=== PATIENT | male | born 1940 | race Caucasian/White ===

== ENCOUNTER 2016-10-26 15:45 | Inpatient (IN) | payer MEDICARE, OTHER ==
[~2016-10-26] VITALS: Ht 177.8 cm; Wt 92.9 kg
[~2016-10-26 15:45] MED LIST: AMLO-39 PO; ASPI-628 PO; ATOR40TA69 PO; DOXA4TAB3 PO; GLIP2.5T2 PO; LISI10TA2 PO; METF500T4 PO; METO5TAB78 PO; PANT40TA2 PO; POLY17PO6 PO; PREG75CA PO; TRAM50TA2 PO
[2016-10-26 15:50] VITALS: BP 154/75; PULSE 60; RESP 16
[2016-10-26 17:28] LABS: BASOPHILS % (AUTO) 0.2 % (0-3); EOSINOPHILS % (AUTO) 0.2 % (0-5); MONOCYTES % (AUTO) 10.8 % (4-12); Mean Corpuscular Hemoglobin 30.7 pg (27.0-35.0); Mean Corpuscular Volume 94.7 fL (81-100); NEUTROPHILS % (AUTO) 62.6 % (40-74); Platelet Count 140 bil/L (150-400)
--- NOTE | 2016-10-26 17:44 | DRSVH ---
PROCEDURE: X-RAY CHEST, TWO VIEWS ([id number]) INDICATIONS: 75 year-old male with cough and shortness of breath. TECHNIQUE: 2 views of the chest were acquired. COMPARISON: [facility], CT, CT KUB, 10/23/2015, 8:58. [facility], CR, XR SAMIR ST 2VW, 11/02/2015, 14:57. FINDINGS: Surgical changes and devices: Sternotomy and CABG. There is a cardiac pacemaker with 2 leads in expec yvonne position. Right shoulder arthroplasty. Lungs and pleura: No pleural effusions or pneumothorax. There is left basilar infiltrate or atelecta sis. Colonic interposition under the diaphragm. Mediastinum: Mediastinal contours are normal. Heart size is moderately increased. Bones and chest wall: No suspicious bony abnormalities. Soft tissues appear unremarkable. IMPRESSION: Cardiomegaly and left basilar infiltrate or atelectasis. Dictated by: Lakesha Sanz M.D. on 10/26/2016 at 17:40 Approved by: Lakesha Sanz M.D. on 10/26/2016 at 17:42
[2016-10-26 17:51] LABS: TROPONIN T 0.083 ug/L (0.0-0.011)
[2016-10-26 17:53] VITALS: BP_SYST 158; BP_SYST 168; BP_DIAS 64; BP_DIAS 96; PULSE 65; RESP 17; O2SAT 95
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
[2016-10-26] MEDS ORDERED: Furosemide 10 mg/mL 2 mL Inj IVPUSH ONE (19:35)
[2016-10-26] MEDS ORDERED: Furosemide 10 mg/mL 4 mL Inj IVPUSH ONE (19:45)
[2016-10-26 21:02] VITALS: BP 171/81; PULSE 60; RESP 20; O2SAT 100
[2016-10-26] MEDS ORDERED: Alum-Mag Hydrox-Simeth 30 mL Suspension PO PRN ×2 (21:10→22:00)
[2016-10-26] MEDS ORDERED: Ondansetron 2 mg/mL 2 mL Inj IVPUSH PRN ×2 (21:10→22:00)
--- NOTE | 2016-10-26 21:19 | NUR ---
MED REC Pts med rec updated from interview w/ pts caregiver, Tatyana, from [facility] ([phone]). Tatyana states pts told her that he "takes 3 medications". Those 3 medications updated in Med Rec, other medications discontinued, as per caregiver/pt, he only takes 3 medications. Addendum: 10/26/16 at 2140 by FABRICE MARTIN RN Admit RN will fax pts PCP for current list of medications.
[2016-10-26 21:51] LABS: COLOR,URINE STRAW (YELLOW)
[2016-10-26 21:52] LABS: APPEARANCE,URINE CLEAR (CLEAR,HAZY); OCCULT BLOOD,URINE SMALL (NEGATIVE); UROBILINOGEN,URINE NORMAL (NORMAL)
[2016-10-26] MEDS ORDERED: Senna-Docusate 8.6-50 mg Tablet PO PRN (22:00)
--- NOTE | 2016-10-26 22:06 | NUR ---
MED REC PCP office of Olivia Rodriguez faxed to request COMPLETE list of pt's medications.
--- NOTE | 2016-10-26 22:06 | NUR ---
Admission Pt admitted to 3027. Report of health history given to Lakeshia Kramer RN Pt oriented to call light/television. Pt is aware of plan of care following resident's visit at bedside. Care ongoing
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
[2016-10-26] MEDS ORDERED: Albuterol-Ipratropium 3 mL Inhalation Solution NEB PRN (22:45)
[2016-10-26 22:52] LABS: INR 0.95 ratio
[2016-10-26 23:46] LABS: Creatine Kinase 189 U/L (21-232); Magnesium 2.2 mg/dL (1.6-2.6)
[2016-10-27] VITALS (9 sets, daily range): BP systolic 108–180; BP diastolic 72–83; PULSE 54–80; RESP 16–20; O2SAT 93–97
[2016-10-27] MEDS: Sodium Chloride LOK Flush 10 mL Syringe IVFLUSH SCH ×3 (00:43→16:51)
[2016-10-27] MEDS: Heparin 5,000 Unit/mL Inj SUBQ SCH ×3 (00:43→16:50)
[2016-10-27] MEDS: guaiFENesin 600 mg ER12 Tablet PO SCH ×4 (00:43→20:30)
[2016-10-27] MEDS ORDERED: OXYC-474 PO (00:52)
--- NOTE | 2016-10-27 01:11 | NUR ---
HOME MEDICATION Pt requested pain medication. Pain medication not listed as home medication per report from pts caregiver. Pt stated, "that's because she didn't have it, I have it." Bottle of medication labeled oxycodone 5mg tablets found in pts closet. Two RNs counted white round pills, 75 pills counted. Bottle of medication put in medication bag, sealed and walked down to pharmacy.
[2016-10-27 07:50] LABS: BASOPHILS % (AUTO) 0.2 % (0-3); EOSINOPHILS % (AUTO) 0.8 % (0-5); MONOCYTES % (AUTO) 14.7 % (4-12); Mean Corpuscular Hemoglobin 30.6 pg (27.0-35.0); Mean Corpuscular Volume 93.5 fL (81-100); Platelet Count 152 bil/L (150-400)
[2016-10-27 07:52] LABS: Phosphorus 2.3 mg/dL (2.5-4.9)
[2016-10-27] MEDS ORDERED: Furosemide 10 mg/mL 4 mL Inj IVPUSH SCH (08:30)
[2016-10-27 08:50] LABS: TROPONIN T 0.084 ug/L (0.0-0.011)
[2016-10-27] MEDS ORDERED: METF500T4 PO (10:45)
--- NOTE | 2016-10-27 12:16 | NUR ---
SOB At approx 1210 pt reported SOB while sitting in WC at bedside. I put pt on 2L, then bumped up to 4L NC, pt was previously on RA. VS taken and were normal range, blood glucose 151, afebrile. Pt reports feeling slightly better, is now eating lunch. Continuing to monitor, notified.
--- NOTE | 2016-10-27 16:34 | NUR ---
Social Work: Initial Assessment Data: Pt is a 75 y/o male admitted for CHF, elevated trop. Pt's PCP is Dr Rodriguez, pt's insurance is Medicare with [employer] [place] supp. EMR reviewed. PATHOLOGY SPECIALIST met with pt at bedside, role explained. Pt states he lives alone in [place] in a single story home where he has HH and [facility]. Pt states he uses a wheelchair at baseline and drives, he states he has hx with HH and SNF. No LTC or VA benefits. Pt states he is not a caregiver. PATHOLOGY SPECIALIST will continue to follow for d/c planning needs. Plan: PATHOLOGY SPECIALIST will follow for d/c planning needs. MYRNA Garcia Addendum: 10/27/16 at 1636 by CONNIE GARRETT Amended: Links added.
[2016-10-27] MEDS: Benzocaine-Menthol Lozenge 2/Pkg PO PRN (16:50)
[2016-10-27] MEDS: Furosemide 10 mg/mL 4 mL Inj IVPUSH SCH (16:50)
--- NOTE | 2016-10-27 17:12 | DRSVH ---
[facility] [address] [place] [address] Echocardiogram Report Name: BONITA ABAD CStudy Ralph e: 10/27/2016 Height: 70 in Hospital [facility] Weight: 204 lb Gender: Male BSA: 2.1 m2 : 1940 Age: 75 yrs BP: 172/83 mmHg Reason For Study: HEART FAILURE Ordering Physician: [facility] Performed By: Chris Herrera Referring Physician: Dr. Douglas Rodriguez Interpretation Summary Left ventricular wall thickness is mild-moderately increased. Left ventricular systolic function is moderately reduced. Left ventricular ejection fraction is estimated to be 35%. Compared to the prior exam, left ventricular function is slightly decreased. Apical wall motion abnormality may reflect pacemaker activation. The right ventricle is normal size. There is a pacemaker lead in the right ventricle. Right ventricular systolic function is borderline reduced. The right ventricular systolic pressure is estimated at 28 mmHg assuming a right atrial pressure of 3 mm Hg. The left atrium is mildly dilated. Right atrial size is normal. There is no significant valvular heart disease. The aortic root is normal size. Procedure: A two-dimensional transthoracic echocardiogram with color flow and Doppler was performed. The study quality was technically adequate. Comparison is made with the echocardiogram of 11/10/15. The patient has a paced rhythm. Left Ventricle: The left ventricle is normal in size. Left ventricular wall thickness is mild-moderately increased. Left ventricular systolic function is moderately reduced. Left ventricular ejection fraction is estimated to be 35%. Compared to the prior exam, left ventricular function is slightly decreased. There is moderate global hypokinesis of the left ventricle. Apical wall motion abnormality may reflect pacemaker activation. Right Ventricle: The right ventricle is normal size. There is a pacemaker lead in the right ventricle. Right ventricular systolic function is borderline reduced. Atria: The left atrium is mildly dilated. Right atrial size is normal. The interatrial septum is intact with no evidence for an atrial septal defect. Mitral Valve: The mitral valve is normal in structure and function. There is trace mitral regurgitation. Aortic Valve: The aortic valve is normal in structure and function. The aortic valve is trileaflet. The aortic valve opens well. No aortic regurgitation is present. Tricuspid Valve: The tricuspid valve is normal in structure and function. There is trace tricuspid regurgitation. The right ventricular systolic pressure is estimated at 28 mmHg assuming a right atrial pressure of 3 mm Hg. Pulmonic Valve: The pulmonic valve is not well visualized. There is no significant valvular heart disease. Great Vessels: The aortic root is normal size. The dimensions of the ascending aorta are normal. The pulmonary artery is normal size. The IVC is of normal diameter and collapses greater than 50% with a sniff. This suggests a low right atrial pressure of 3 mm Hg. Pericardium/ Pleura There is no pericardial effusion. There is no pleural effusion. MMode/2D Measurements & Calculations LVIDd: 4.1 cm RA long axis: 5.2 cm LVOT diam LVIDs: 3.7 cm LA A2 area: 22.4 cm FS: 10.7 % LA A4 area: 25.6 cm RA area: 17.0 cm AoV Opening EPSS: 0.78 cm LA length (vol): 6.6 cm RA vol: 47.1 ml IVSd: 1.2 cm LA vol: 73.8 ml RA : 22.4 ml/m2 Ao root diam LVPWd: 1.3 cm LA vol index: 35.0 ml/m Aortic Jxn IVC diam: 1.5 cm asc Aorta Diam EDV(MOD-sp2) LV lund. diameter/BSA LV sys. diameter/BSA RVD1 (basal) (cm/m^2): 1.9 (cm/m^2): 1.7 : 3.6 cm RVD2 (mid) : 3.3 cm Doppler Measurements & Calculations Ao V2 max MV E max tank MV E/A: 0.46 TR max tank: 251.5 cm/sec : 98.1 cm/sec : 33.5 cm/sec Med Peak E' Tank TR max P.3 mmHg Ao max PG MV A max tank PA V2 max: 70.6 cm/sec : 3.8 mmHg : 73.6 cm/sec E/E' med: 18.5 PA mean P.84 mmHg Ao mean PG Pulm A Revs Dur PA Accel Time: 0.11 sec : 2.4 mmHg MV A dur: 0.13 sec MV dec time Ao V2 mean PA V2 mean Pulm A Revs Dur - MV A : 0.23 sec : 76.0 cm/sec : 42.0 cm/sec Dur: -0.01 msec Ao V2 VTI : 20.2 cm Reading Physician:JUAN LUIS
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
[2016-10-28] VITALS (8 sets, daily range): BP systolic 109–167; BP diastolic 63–82; PULSE 56–72; RESP 18–20; O2SAT 93–97
[2016-10-28] MEDS: Heparin 5,000 Unit/mL Inj SUBQ SCH ×3 (00:22→18:41)
[2016-10-28] MEDS: Sodium Chloride LOK Flush 10 mL Syringe IVFLUSH SCH ×3 (00:22→16:30)
[2016-10-28] MEDS ORDERED: Sodium Chloride NAS 45 mL Spray NASAL PRN (06:25)
[2016-10-28 07:50] LABS: BASOPHILS % (AUTO) 0.2 % (0-3); MONOCYTES % (AUTO) 17.2 % (4-12); Mean Corpuscular Hemoglobin 30.5 pg (27.0-35.0); Mean Corpuscular Volume 93.6 fL (81-100); NEUTROPHILS % (AUTO) 47.5 % (40-74); Platelet Count 164 bil/L (150-400)
[2016-10-28] MEDS: Furosemide 10 mg/mL 4 mL Inj IVPUSH SCH (08:57)
[2016-10-28] MEDS: guaiFENesin 600 mg ER12 Tablet PO SCH ×2 (08:57→20:30)
--- NOTE | 2016-10-28 14:02 | DRSVH ---
PROCEDURE: X-RAY CHEST ONE VIEW, PORTABLE ([id number]) INDICATIONS: SHORTNESS OF BREATH TECHNIQUE: One view of the chest was acquired. COMPARISON: [facility], CR, XR CHEST 2VW, 10/26/2016, 17:28. [facility], CR, CHEST 1VW (PORTABLE), 09/30/2014, 21:49. FINDINGS: Surgical changes and devices: Sternotomy and CABG. There is a cardiac pacemaker with 2 leads in expec yvonne position. Right shoulder arthroplasty. Lungs and pleura: No pleural effusions or pneumothorax. Lungs are clear. Mediastinum: Mediastinal contours are normal. Heart size is moderately increased. Bones and chest wall: No suspicious bony abnormalities. Soft tissues appear unremarkable. IMPRESSION: Stable cardiomegaly and no acute cardiopulmonary disease. Dictated by: Sandeep BENTLEY Interpreted: Jackie Whitman MD on 10/28/2016 at 14:01 Transcribed by: DIANE on 10/28/2016 at 14:02 Approved by: Jackie Whitman M.D. on 10/28/2016 at 16:10
[2016-10-28] MEDS: Polyethylene Glycol (PEG) 17 Gm Powder PO PRN ×2 (18:39→21:17)
--- NOTE | 2016-10-28 18:48 | NUR ---
low urine output approx 300mls very dark satya urine. Provider notified. Lasix d/c by provider. Urinal at bedside and using independently.
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
[2016-10-29] VITALS (9 sets, daily range): BP systolic 126–169; BP diastolic 64–98; PULSE 50–72; RESP 18; O2SAT 94–97
[2016-10-29] MEDS: Sodium Chloride LOK Flush 10 mL Syringe IVFLUSH SCH ×3 (00:09→15:59)
[2016-10-29] MEDS: Heparin 5,000 Unit/mL Inj SUBQ SCH ×3 (01:52→15:59)
--- NOTE | 2016-10-29 05:36 | NUR ---
Urine Output/ PAIN Pt urine output 700cc during the night. Complained of neck pain 02/18. Administered Roxicodone 5mg x1, effective. Pt rested through rest of night with no further complaints of pain or discomfort. Call light within reach. Cooperative with care.
[2016-10-29] MEDS: guaiFENesin 600 mg ER12 Tablet PO SCH ×2 (07:57→21:06)
[2016-10-29 13:05] LABS: BASOPHILS % (AUTO) 0.3 % (0-3); EOSINOPHILS % (AUTO) 0.5 % (0-5); Mean Corpuscular Hemoglobin 30.5 pg (27.0-35.0); Mean Corpuscular Volume 94.9 fL (81-100); NEUTROPHILS % (AUTO) 68.6 % (40-74); Platelet Count 194 bil/L (150-400)
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
--- NOTE | 2016-10-29 16:04 | NUR ---
Social Work: Readiness for d/c Data: Pt is on day 3 of hospitalization. EMR reviewed. Pt discussed in rounds. MD states pt likely ready for d/c either today or tomorrow. INSET CUTTER met with pt to discuss d/c planning. Pt states he is concerned about transportation and if his [facility] caregivers will be at his house to help him settle in. INSET CUTTER states she can help set up a wheel chair van home and that she will call [facility] to make sure they will be there. Pt states he feels better about going home. Pt states he is agreeable to HERIBERTO, HERIBERTO choice list provided, pt states he would like [facility] as he has had them before. INSET CUTTER called [facility] who requested a call in the AM when he may be ready to go home. INSET CUTTER called [facility], spoke with Hernesto Doshi, referred pt, access given. F2F in INSET CUTTER folder. Assessment: Pt with caregiving at baseline. Plan: Pt will d/c home via wheelchair van with [facility] caregivers and [facility] RN/INSET CUTTER when medically stable, likely tomorrow. INSET CUTTER will continue to follow. MYRNA Garcia
--- NOTE | 2016-10-29 18:35 | NUR ---
Activity/output Pt amb to BR and in room this shift with use of personal crutch and multiple braces. Pt tolerating activity well. Pt had 400ml of urine output + 1 unmeasured output on the toilet. Pt occ c/o pain, PRN analgesic effective. Currently sitting in chair, call light within reach.
[2016-10-30] VITALS (11 sets, daily range): BP systolic 123–203; BP diastolic 75–118; PULSE 55–82; RESP 18–20; O2SAT 93–97
[2016-10-30] MEDS: Heparin 5,000 Unit/mL Inj SUBQ SCH ×3 (01:03→16:42)
[2016-10-30] MEDS: Sodium Chloride LOK Flush 10 mL Syringe IVFLUSH SCH ×3 (01:04→16:42)
--- NOTE | 2016-10-30 05:00 | NUR ---
BP Pt BP 200/103 after getting out of bed and moving to chair. BP reassessed after 15 mins, decreased to 123/72, appears to be within previous BP range, asymptomatic. Will continue to monitor.
[2016-10-30 07:11] LABS: BASOPHILS % (AUTO) 0 % (0-3); EOSINOPHILS % (AUTO) 0.9 % (0-5); MONOCYTES % (AUTO) 12.5 % (4-12); Mean Corpuscular Hemoglobin 30.7 pg (27.0-35.0); Mean Corpuscular Volume 94.1 fL (81-100); NEUTROPHILS % (AUTO) 64.3 % (40-74); Platelet Count 186 bil/L (150-400)
[2016-10-30] MEDS: Polyethylene Glycol (PEG) 17 Gm Powder PO PRN (08:06)
[2016-10-30] MEDS: guaiFENesin 600 mg ER12 Tablet PO SCH ×2 (08:08→20:21)
[2016-10-30] MEDS ORDERED: FUR20 PO (09:19)
--- NOTE | 2016-10-30 09:24 | PCM.DIMED ---
Margoth Briscoe DO 10/30/16 0907: Discharge Instructions Date of Service Oct 30, 2016 Dates of Hospitalization Oct 26, 2016 at 20:26 Discharge Diagnosis Discharge Diagnosis Acute exacerbation of chronic systolic congestive heart failure, present on admission. Resolved. Elevated troponin of unknown significance, present on admission. Resolved. Thrombocytopenia, chronicity unknown, present on admission. Resolved. Diabetes mellitus type II, non-insulin using, chronic. Stable. Hypertension, chronic. Stable. Chronic kidney disease stage II. Stable. Coronary artery disease, chronic. Stable. . Medication Instructions Continued medications: Amlodipine 5 mg daily. Atorvastatin 40 mg daily at bedtime. Doxazosin 4 mg daily at bedtime. Metformin 500 mg twice a day. Oxycodone 5 mg every 4 hours as needed for pain. New medications: Furosemide 20 mg daily. Diet Heart Healthy, Diabetic Activity Home Health Phyical Therapy (Nursing, ELECTROMEDICAL SERVICE ENGINEER, and PT) Call your provider Shortness of breath, Chest pain, Weakness (unilateral) Patient Instructions Follow-up plan Please follow up with your primary care provider, Dr. Rodriguez, in the next 1-2 weeks regarding your recent hospitalization. You will also need to follow-up with your 3d technologist, Dr. Hammond, in the next 1 month regarding your acute systolic heart failure exacerbation and CHF clinic. You will need blood work in one week (BMP) for Dr. Rodriguez to follow at that time. . Follow-up Provider: Douglas Rodriguez MD Follow-up with PCP in: 2 weeks Provider: Alec Hammond MD Follow-up in: 1 week CHF Clinic: 1 week Adela Padilla MD 10/31/16 0756: Discharge Instructions Attending's Statement The patient was seen and examined together with Dr. Briscoe on 10-30-16 and I agree with the history, exam and plan as outlined in the note above. Margoth Briscoe DO Oct 30, 2016 09:07 Adela Padilla MD Oct 31, 2016 07:56
--- NOTE | 2016-10-30 10:00 | NUR ---
SHAUN signed MYRNA Garcia
--- NOTE | 2016-10-30 10:16 | NUR ---
Social Work: Continued d/c planning Data: Pt is on day 4 of hospitalization. EMR reviewed. D/C orders are in. FABRIC COATING SUPERVISOR met with pt to discuss transportation home and his caregiving. Pt states he wants to appeal his d/c. FABRIC COATING SUPERVISOR notified JEREMIAH RN. FABRIC COATING SUPERVISOR notified and RN. FABRIC COATING SUPERVISOR will continue to follow. Assessment: Pt who is independent at baseline. Plan: Pt plans to appeal his d/c. Pt will likely d/c home on 10/31/16 via cabulance with [facility] ([phone]) caregivers to meet him at home and [facility] RN/FABRIC COATING SUPERVISOR/PT. FABRIC COATING SUPERVISOR will continue to follow. MYRNA Garcia
--- NOTE | 2016-10-30 11:55 | PCM.DC.MED ---
Discharge Summary Date of Service Oct 30, 2016 Dates of Hospitalization Date of Hospital Admission Oct 26, 2016 at 20:26 Date of Discharge: Oct 30, 2016 Providers: Admitting Physician: Esthela Quesada MD Primary Care Physician: Douglas Rodriguez MD Attending Physician: Esthela Quesada MD Diagnosis at Time of Discharge Diagnosis at Time of Discharge Acute exacerbation of chronic systolic congestive heart failure, present on admission. Resolved. Elevated troponin of unknown significance, present on admission. Resolving. Thrombocytopenia, chronicity unknown, present on admission. Resolved. Diabetes mellitus type II, non-insulin using, chronic. Stable. Hypertension, chronic. Stable. Chronic kidney disease stage II. Stable. Coronary artery disease, chronic. Stable. . Procedures XRay, CTs & MRIs X-RAY CHEST ONE VIEW, PORTABLE IMPRESSION: Stable cardiomegaly and no acute cardiopulmonary disease. Dictated by: Sandeep Sheffield RRA Interpreted: Jackie Whitman MD on 10/28/2016 at 14: 01 Transcribed by: DIANE on 10/28/2016 at 14:02 Approved by: Jackie Whitman M.D. on 10/28/2016 at 16:10 X-RAY CHEST, TWO VIEWS IMPRESSION: Cardiomegaly and left basilar infiltrate or atelectasis. Dictated by: Lakesha Sanz M.D. on 10/26/2016 at 17:40 Approved by: Lakesha Sanz M.D. on 10/26/2016 at 17:42 . ECG 12 Lead EKG Read by night resident: Heart rate 55, ventricularly paced rhythm, prolonged [place] interval at 215 milliseconds, QTC prolonged at 509, widened QRS complex diffusely, Q waves leads 3 aVF and V1, Yimi segment segment elevation in leads V1 through V3, no prior EKG to compare. . Cardiac Echo Impression Echocardiogram Interpretation Summary: Left ventricular wall thickness is mild-moderately increased. Left ventricular systolic function is moderately reduced. Left ventricular ejection fraction is estimated to be 35%. Compared to the prior exam, left ventricular function is slightly decreased. Apical wall motion abnormality may reflect pacemaker activation. The right ventricle is normal size. There is a pacemaker lead in the right ventricle. Right ventricular systolic function is borderline reduced. The right ventricular systolic pressure is estimated at 28 mmHg assuming a right atrial pressure of 3 mm Hg. The left atrium is mildly dilated. Right atrial size is normal. There is no significant valvular heart disease. The aortic root is normal size. Reading Physician:PM Brief History Per history of present illness written by Dr. Forte on 10/26/2015: Amadou is a pleasant 75 Y/O M with a history of chronic kidney disease ( baseline Cr 1.3-1.4) and diabetes melitis on metformin (reports most recent hemoglobin A1c in the normal range), and CAD s/p 6 vessel CABG 1998( followed by Dr. Hammond) who presents to the ED with wheezing onset 12 days ago with associated symptoms of non-productive dry cough, nasal congestion, and sore throat. Patient was given medication ibuprofen 600 mg every 4 by his primary care physician. Patient states that his sore throat has since resolved, however his other symptoms have worsened and are exacerbated with laying on his side. Patient states that over the past 10-12 days his sleeping has been difficult given his chest congestion and cough. He states that he sleeps propped up in bed. He states that he has never experienced any like this prior. Patient denies shortness of breath, dyspnea, edema, paroxysmal nocturnal dyspnea, weight gain, history of sleep apnea, nausea, vomiting, chest pain, fever, chills, sweats, palpitations. In the ED: CXR: Cardiomegaly and left basilar infiltrate or atelectasis. Vital signs in the ED: Temperature 36.2, pulse 60, blood pressure 154/75, respirations 16, 95% room air Repeat vitals were pulse 65, blood pressure 147/63, respirations 18, 94% on room air Hemogram normal with the exception of platelet count 140 Chemistry panel: Normal with the exception of elevated creatinine 1.46, glucose 173, troponin 0.083, proBNP 96723, Baseline creatinin1.3-1.4. EKG: Heart rate 55, ventricularly paced rhythm, prolonged IL interval at 215 milliseconds, QTC prolonged at 509, widened QRS complex diffusely, Q waves leads 3 aVF and V1, Yimi segment segment elevation in leads V1 through V3, no prior EKG to compare. . Hospital Course Amadou Hook is a 75-year-old male with past medical history of diabetes mellitus type II, non-insulin and coronary artery disease who presented to [facility] Emergency Department with 12 days of worsening wheezing, nonproductive cough, and nasal congestion and was treated for acute systolic congestive heart failure exacerbation. Hospital day #5. Acute exacerbation of chronic systolic congestive heart failure, present on admission. Resolved. - BNP of 15,322 at admission. - IV Lasix 40 mg twice a day was discontinued. - Patient discharged on furosemide 20 mg daily and potassium chloride 20 mEq daily. - Echocardiogram revealed slightly worsened EF of 35% and apical wall motion abnormalities, as above. - Monitored I's and O's and daily weight throughout hospitalization. - Chest x-ray on 10/28/2016 demonstrating no acute cardiopulmonary disease. - Ordered CHF clinic for patient to follow-up at after discharge. - Patient will need to follow-up with his PCP Dr. Rodriguez and his Habilitation Training Specialist Dr. Hammond. Elevated troponin of unknown significance, present on admission. Resolving. - Elevated troponins likely secondary to chronic kidney disease. - Currently no evidence of ischemia or cardiac association. - Troponins were elevated 3 but trended down. Thrombocytopenia, chronicity unknown, present on admission. Resolved. - Initial platelet count was borderline low at 140. - Continued to monitor throughout hospitalization. Diabetes mellitus type II, non-insulin using, chronic. Stable. - Hemoglobin A1c 6.6% on admission 10/26/2016. - Held metformin. Restarted at time of discharge. - Continued low-dose correctional scale insulin. - Continued to monitor blood glucose daily. Hypertension, chronic. Stable. - Held lisinopril and amlodipine. Restarted at time of discharge. - Continued to monitor. Chronic kidney disease stage II. Stable. - Baseline creatinine 1.3 to 1.4. - The patient does not have a icebox man. Coronary artery disease, chronic. Stable. - Status post 6 vessel CABG. - Patient is followed by Dr. Hammond and recommended outpatient follow-up with his fluorescent solution mixer in 1-2 weeks after time of discharge. . Exam Vital Signs (Last) Date Time Temp Pulse Resp B/P Pulse Ox O2 Delivery O2 Flow Rate FiO2 10/30/16 10:20 74 10/30/16 10:15 20 94 Room Air 10/30/16 08:39 36.8 170/80 Exam General: Elderly gentleman lying in bed and in no acute distress, well-developed , well-nourished, appropriately interactive. Hard of hearing R>L. HEENT: Normocephalic, atraumatic. External ears without defect. Moist conjunctivae. Oropharynx with moist mucosa. Neck: Supple with full range of motion. Cardiovascular: Regular rate and rhythm with no murmurs, rubs, or gallops appreciated Pulmonary: Clear to auscultation bilaterally. No wheezes or rhonchi auscultated. No conversational dyspnea noted. Normal respiratory effort with no use of accessory muscles. No supplemental oxygen necessary. Abdomen: Soft, obese, nontender, nondistended, bowel sounds present. Extremities: No clubbing, cyanosis, or edema. Left upper extremity amputation. Psychiatric: Patient is agitated and irritable. Patient also seems very forgetful, forgetting things at work told him just minutes prior, which has been an issue throughout the hospitalization. Alert and oriented to person, place, and time. . Test 10/26/16 17:12 10/26/16 21:45 10/26/16 22:30 10/27/16 06:20 Hemoglobin A1c 6.6% (4.8-5.6) Hold Deutsch Top Tube Received (Received) Urine Color Straw (YELLOW) Urine Appearance Clear (CLEAR,HAZY) Urine pH 6.0 (5.0-8.0) Urine Specific [place] 1.015 (1.003-1.035) Urine Protein Negativemg/dL (NEG,TRACE) Urine Glucose (UA) Negativemg/dL (NEGATIVE) Urine Ketones Negativemg/dL (NEGATIVE) Urine Occult Blood Small (NEGATIVE) Urine Nitrite Negative (NEGATIVE) Urine Bilirubin Negative (NEGATIVE) Urine Urobilinogen Normalmg/dL (NORMAL) Urine Leukocyte Esterase Negative (NEGATIVE) Urine RBC 0-2/hpf (0-2) Urine WBC 0-5/hpf (0-5) Urine Epithelial Cells None/hpf (NONE-MOD) Urine Crystals None seen (NONE SEEN) Urine Bacteria None/hpf (NONE-FEW) Urine Hyaline Casts None/lpf (NONE) Urine Granular Casts None seen (NONE SEEN) Urine Waxy Casts None seen (NONE SEEN) Urine Red Blood Cell Casts None seen (NONE SEEN) Urine White Blood Cell Casts None seen (NONE SEEN) Urine Mucus None seen (None Seen) Urine Trichomonas None seen (NONE SEEN) Urine Yeast None (NONE SEEN) Urinalysis Comment None Urine Culture Reflexed Not indicated Prothrombin Time 10.1sec (8.1-12.5) Prothromb Time International Ratio 0.95ratio Activated Partial Thromboplast Time 30.4sec (22.8-33.0) Uric Acid 5.2mg/dL (2.6-7.2) Magnesium Level 2.2mg/dL (1.6-2.6) Total Creatine Kinase 189U/L (21-232) Creatine Kinase MB 3.9ng/mL (0.0-10.4) Creatine Kinase MB % % (0.0-5.0) Prealbumin 12mg/dL (20-40) Vitamin B12 Level 398pg/mL (211-946) Folate 13.2ng/mL (>3.0) Thyroid Stimulating Hormone (TSH) 1.650uIU/mL (0.450-4.500) Phosphorus Level 2.3mg/dL (2.5-4.9) Test 10/27/16 22:05 10/28/16 07:26 10/29/16 05:30 10/30/16 06:05 Troponin T 0.071ug/L (0.0-0.011) Procalcitonin 0.18ng/mL (0.00-0.08) Pro-B-Type Natriuretic Peptide 9507pg/mL (0-486) White Blood Count 7.6th/mm3 (3.8-10.1) Red Blood Count 4.37mil/mm3 (4.40-5.80) Hemoglobin 13.4g/dL (13.8-17.2) Hematocrit 41.1% (41.0-50.0) Mean Corpuscular Volume 94.1fL (81-100) Mean Corpuscular Hemoglobin 30.7pg (27.0-35.0) Mean Corpuscular Hemoglobin Concent 32.6% (32.0-37.0) Red Cell Distribution Width 13.8% (12.3-15.4) Platelet Count 186bil/L (150-400) Neutrophils (%) (Auto) 64.3% (40-74) Lymphocytes (%) (Auto) 22.0% (14-46) Monocytes (%) (Auto) 12.5% (4-12) Eosinophils (%) (Auto) 0.9% (0-5) Basophils (%) (Auto) 0% (0-3) Sodium Level 139mEq/L (134-144) Potassium Level 3.8mEq/L (3.5-5.2) Chloride Level 99mEq/L (97-108) Carbon Dioxide Level 25mmol/L (18-29) Blood Urea Nitrogen 40mg/dL (8-27) Creatinine 1.54mg/dL (0.76-1.27) Estimat Glomerular Filtration Rate 47mL/min (>59) Glucose Level 143mg/dL (60-99) Calcium Level 8.7mg/dL (8.5-10.1) Total Bilirubin 0.7mg/dL (0.0-1.2) Aspartate Amino Transf (AST/SGOT) 26U/L (0-50) Alanine Aminotransferase (ALT/SGPT) 12U/L (0-44) Alkaline Phosphatase 82U/L (25-160) Total Protein 6.7g/dL (6.4-8.4) Albumin 3.2g/dL (3.4-5.0) Discharge Medications Discharge Medications Amlodipine (Norvasc) 5 Mg Tablet 5 MG PO DAILY Prescribed by: TONI KHAN MD Atorvastatin Calcium (Atorvastatin Calcium) 40 Mg Tablet 40 MG PO HS (Reported) Doxazosin Mesylate (Doxazosin Mesylate) 4 Mg Tablet 4 MG PO HS (Reported) Furosemide (Furosemide) 20 Mg Tab 20 MG PO DAILY Prescribed by: STEWART GALLEGOS DO Metformin (Metformin) 500 Mg Tablet 500 MG PO BID (Reported) As needed Oxycodone (Roxicodone) 5 Mg Tablet 5 MG PO Q4H PRN PRN For Pain (Reported) Additional med instructions Continued medications: Amlodipine 5 mg daily. Atorvastatin 40 mg daily at bedtime. Doxazosin 4 mg daily at bedtime. Metformin 500 mg twice a day. Oxycodone 5 mg every 4 hours as needed for pain. New medications: Furosemide 20 mg daily. Followup Plan Disposition: Home with home health (REGULATOR OPERATOR, nursing, and physical therapy) and home caregivers. . Follow-up plan Please follow up with your primary care provider, Dr. Rodriguez, in the next 1-2 weeks regarding your recent hospitalization. You will also need to follow-up with your fluorescent solution mixer, Dr. Hammond, in the next 1 month regarding your acute systolic heart failure exacerbation and CHF clinic. You will need blood work in one week (BMP) for Dr. Rodriguez to follow at that time. . Discharge Diet: Heart Healthy, Diabetic Discharge Activity: Home Health Phyical Therapy (Nursing, REGULATOR OPERATOR, and PT) Follow-up Provider: Douglas Rodriguez MD Follow-up with PCP in: 2 weeks Provider: Alec Hammond MD Follow-up in: 1 week CHF Clinic: 1 week Attending Statement The patient was seen and examined together with Dr. Gallegos on 10-30-16 and I agree with the history, exam and plan as outlined in the note above. While patient was discharged he will remain in the hospital as he has contested his discharge, social service speaking with patient. Transition to discharged home medications. Stewart Gallegos DO Oct 30, 2016 11:55 Adela Padilla MD Oct 31, 2016 07:59
--- NOTE | 2016-10-30 14:30 | NUR ---
Case Management D: Pt discharged, appealing d/c through [facility]. [id number]
--- NOTE | 2016-10-30 18:10 | NUR ---
Uneventful shift Pt up to w/c off and on this shift. Amb to BR and w/c with crutch and braces in place. PRN analgesic effective for pain management.
[2016-10-31] VITALS (8 sets, daily range): BP systolic 117–170; BP diastolic 68–82; PULSE 50–90; RESP 18–20; O2SAT 90–96
[2016-10-31] MEDS: Sodium Chloride LOK Flush 10 mL Syringe IVFLUSH SCH ×3 (00:58→17:56)
[2016-10-31] MEDS: Heparin 5,000 Unit/mL Inj SUBQ SCH ×3 (00:58→17:57)
[2016-10-31] MEDS: Polyethylene Glycol (PEG) 17 Gm Powder PO PRN (06:31)
--- NOTE | 2016-10-31 06:34 | NUR ---
Uneventful night (Assumed care at 2211) Pt c/o neck pain 03/20, oxycodone 5mg givenx2 per pt requests. Pain improved and pt sleeping most of night. Otherwise, pt no complains. Alert and orientedX3. VSS, afebrile.
[2016-10-31] MEDS: guaiFENesin 600 mg ER12 Tablet PO SCH ×3 (10:45→12:09)
--- NOTE | 2016-10-31 11:18 | NUR ---
Social Work Discharge: SW met with patient at bedside to discuss discharge plan. Patient appealed discharge on 10/30. Patient states being not ready for discharge despite service arrangements in place. Patient is current with [facility] services and private duty care services via [facility], . SW spoke to [facility] rep Italo and provided face to face. STOC to begin 24-48hrs following discharge. SW also current with [facility] and SW spoke to caregiver rep Chantel who states that caregiver available for patient at home today or tomorrow. SW to await appeals decision to discharge patient home with above service arrangements. SW to follow. PLAN: Home with continued HHC services via [facility] and private duty care services via [facility] Jackie NORRIS
--- NOTE | 2016-10-31 14:58 | NUR ---
Evaluation completed. Please go to "Notes" then click on "Assessments and Notes" (bottom left corner of screen). Then select appropriate discipline tab on top of screen.
[2016-10-31] MEDS: Benzocaine-Menthol Lozenge 2/Pkg PO PRN (15:39)
[2016-10-31] MEDS: Nystatin 100,000 Unit/Gm 15 Gm Powder TOPICAL SCH ×2 (15:40→21:49)
--- NOTE | 2016-10-31 18:30 | NUR ---
Activity Up in chair for meals. Uses knee and wrist brace when up.
--- NOTE | 2016-10-31 19:05 | PCM.PNMED ---
Subjective Date of Service Oct 31, 2016 Subjective Amadou Hook is a 75-year-old male with past medical history of diabetes mellitus type II, non-insulin and coronary artery disease who presented to [facility] Emergency Department with 12 days of worsening wheezing, nonproductive cough, and nasal congestion and was treated for acute systolic congestive heart failure exacerbation. Hospital day #6. Today Mr. Hook is still stating that his neck is hurting. Denies any other pain at this time. . Exam Vital Signs Vital Sign - Last Date Time Temp Pulse Resp B/P Pulse Ox O2 Delivery O2 Flow Rate FiO2 10/31/16 18:18 36.8 64 20 143/69 94 Room Air Intake and Output 10/30/16 10/30/16 10/31/16 Cumulative From/Thru 15:00 23:00 07:00 10/26/16 15:50 - 10/31/16 06:58 Intake Total 736 ml 400 ml 4948 ml Output Total 250 ml 400 ml 6175 ml Balance 486 ml 0 ml -1227 ml Intake Oral 736 ml 400 ml 4948 ml Output Urine Total 250 ml 400 ml 6175 ml # Voids 1 # Bowel Movements 0 0 1 Exam General: alert, no acute distress Eyes: scleral anicteric Mouth: mucous membranes moist/pink Neck: supple Chest & Lungs: clear to auscultation, no adventitious breath sounds Cardiovascular: no murmurs/rubs/gallops, regular rate/rhythm Pulses: Dorsalis Pedi (present and equal) Abdomen: normoactive bowel tones Musculoskeletal: No left arm Extremities: no edema, no cyanosis, no clubbing Neurological: Normal speech . IVs and Medications Medications Reviewed: Medications were reviewed in detail Medications Patient is on his home medications. Lab and Diagnostics Result Diagram: 10/30/1660410/30/16604 X-Rays, CTs and MRIs X-RAY CHEST ONE VIEW, PORTABLE IMPRESSION: Stable cardiomegaly and no acute cardiopulmonary disease. Dictated by: Sandeep BENTLEY Interpreted: Jackie Whitman MD on 10/28/2016 at 14: 01 Transcribed by: DIANE on 10/28/2016 at 14:02 Approved by: Jackie Whitman M.D. on 10/28/2016 at 16:10 X-RAY CHEST, TWO VIEWS IMPRESSION: Cardiomegaly and left basilar infiltrate or atelectasis. Dictated by: Lakesha Sanz M.D. on 10/26/2016 at 17:40 Approved by: Lakesha Sanz M.D. on 10/26/2016 at 17:42 . 12-lead ECG EKG Read by night resident: Heart rate 55, ventricularly paced rhythm, prolonged [place] interval at 215 milliseconds, QTC prolonged at 509, widened QRS complex diffusely, Q waves leads 3 aVF and V1, Yimi segment segment elevation in leads V1 through V3, no prior EKG to compare. . Cardiac Echo Impressions Echocardiogram Interpretation Summary: Left ventricular wall thickness is mild-moderately increased. Left ventricular systolic function is moderately reduced. Left ventricular ejection fraction is estimated to be 35%. Compared to the prior exam, left ventricular function is slightly decreased. Apical wall motion abnormality may reflect pacemaker activation. The right ventricle is normal size. There is a pacemaker lead in the right ventricle. Right ventricular systolic function is borderline reduced. The right ventricular systolic pressure is estimated at 28 mmHg assuming a right atrial pressure of 3 mm Hg. The left atrium is mildly dilated. Right atrial size is normal. There is no significant valvular heart disease. The aortic root is normal size. Reading Physician:PM Assessment & Plan Amadou Hook is a 75-year-old male with past medical history of diabetes mellitus type II, non-insulin and coronary artery disease who presented to [facility] Emergency Department with 12 days of worsening wheezing, nonproductive cough, and nasal congestion and was treated for acute systolic congestive heart failure exacerbation. Hospital day #6. Acute exacerbation of chronic systolic congestive heart failure, present on admission. Resolved. - Patient is not actively being treated other than continuing his own home medications at this time. - BNP of 15,322 at admission. - IV Lasix 40 mg twice a day was discontinued. - Patient to be discharged on furosemide 20 mg daily and potassium chloride 20 mEq daily. - Echocardiogram revealed slightly worsened EF of 35% and apical wall motion abnormalities, as above. - Monitored I's and O's and daily weight throughout hospitalization. No longer monitoring. - Chest x-ray on 10/28/2016 demonstrating no acute cardiopulmonary disease. - Ordered CHF clinic for patient to follow-up at after discharge. - Patient will need to follow-up with his PCP Dr. Rodriguez and his Mixing Operator Dr. Hammond. Elevated troponin of unknown significance, present on admission. Resolving. - No longer monitoring troponins. Patient not complaining of chest pain or palpitations. - Elevated troponins likely secondary to chronic kidney disease. - Currently no evidence of ischemia or cardiac association. - Troponins were elevated 3 but trended down. Thrombocytopenia, chronicity unknown, present on admission. Resolved. - Initial platelet count was borderline low at 140. - Continued to monitor throughout hospitalization but no longer monitoring. Diabetes mellitus type II, non-insulin using, chronic. Stable. - Hemoglobin A1c 6.6% on admission 10/26/2016. - Held metformin. Restarted at this time because it is part of his home medications. - Had low-dose correctional scale insulin. Hypertension, chronic. Stable. - Held lisinopril and amlodipine. Restarted at this time because it is part of his home medications. - Continued to monitor. Chronic kidney disease stage II. Stable. - Baseline creatinine 1.3 to 1.4. - The patient does not have a child day care teacher. - No longer ordering labs Coronary artery disease, chronic. Stable. - Status post 6 vessel CABG. - Patient is followed by Dr. Hammond and recommended outpatient follow-up with his cone operator in 1-2 weeks after time of discharge. . VTE Prophylaxis: Sub-Q Heparin (Unfractionated) Resuscitation Status: CPR: Attempt Resuscitation Attending Statement The patient was seen and examined together with Dr. Wang on 10-31-16 and I agree with the history, exam and plan as outlined in the note above. Pilar Wang DO Oct 31, 2016 19:05 Adela Padilla MD Nov 01, 2016 09:26
[2016-11-01 00:47] VITALS: BP 120/68; PULSE 68; RESP 18; O2SAT 95
[2016-11-01] MEDS: Sodium Chloride LOK Flush 10 mL Syringe IVFLUSH SCH ×2 (01:15→07:38)
[2016-11-01] MEDS: Heparin 5,000 Unit/mL Inj SUBQ SCH ×2 (01:15→07:45)
[2016-11-01 04:52] VITALS: BP 132/70; PULSE 70; RESP 18; O2SAT 97
--- NOTE | 2016-11-01 06:36 | NUR ---
Pain Pt c/o neck pain 03/20, Oxycodone given x2 per pt requests. Pain controlled well, pt sleeping most of night. VSS,afebrile.
[2016-11-01] MEDS: Polyethylene Glycol (PEG) 17 Gm Powder PO PRN (07:37)
[2016-11-01] MEDS: guaiFENesin 600 mg ER12 Tablet PO SCH (07:38)
[2016-11-01] MEDS: Nystatin 100,000 Unit/Gm 15 Gm Powder TOPICAL SCH (07:38)
[2016-11-01 10:02] VITALS: BP 143/70; PULSE 68; RESP 18; O2SAT 95
[2016-11-01 12:58] VITALS: PULSE 62
[2016-11-01 13:52] VITALS: BP 120/72; PULSE 70; RESP 18; O2SAT 97
--- NOTE | 2016-11-01 16:05 | NUR ---
Arranged private pay transport with [facility] for 1700. Patient uses [facility] frequently and is returning home.
--- NOTE | 2016-11-01 17:22 | NUR ---
Social Work Discharge: Patient states having received phone call from Medicare regarding appeal decision and patient to discharge home with HHC services via [facility] and caregiver support at home. SW spoke to [facility] rep Puckett who was advised. STOC to begin 24-48hrs following discharge. SW spoke to patient caregivers via [facility] who states that caregiver to be available from 6-10:30pm tonight. Patient made aware and in agrement. Patient states he to transport via [facility] transport upon discharge. UR specialist coordinated transport via [facility] for garbage pick up worker at 5:30pm. No other needs PLAN: Home with continued HHC services via [facility] and continued caregiver support via [facility]. Caregiver available tondeja. Jackie NORRIS
--- NOTE | 2016-11-01 17:54 | NUR ---
DISCHARGE Pt discharged this evening at 1750, off unit in w/c accompanied by [facility] power screwdriver operator. Vital signs stable, A&Ox4, denies any pain and in no apparent distress. IV dc'd intact, all belongings returned. All instructions for diet, activity, medications, prescriptions and follow up reviewed with patient who reports understanding.
--- NOTE | 2016-11-01 20:53 | PCM.PNMED ---
Subjective Date of Service Nov 01, 2016 Subjective NOTE: Mr. Hook has discharged today. This is an update to the discharge note and instructions by Dr. Briscoe dated 10/30/16. Amadou Hook is a 75-year-old male with past medical history of diabetes mellitus type II, non-insulin and coronary artery disease who presented to [facility] Emergency Department with 12 days of worsening wheezing, nonproductive cough, and nasal congestion and was treated for acute systolic congestive heart failure exacerbation. Today Mr. Hook was in his chair shaving when I saw him. He is awaiting his appeal to stay in the hospital. He is eating, and ambulating. Does not want to answer questions. . Exam Vital Signs Vital Sign - Last Date Time Temp Pulse Resp B/P Pulse Ox O2 Delivery O2 Flow Rate FiO2 11/01/16 13:52 36.0 70 18 120/72 97 Room Air Intake and Output 10/31/16 10/31/16 11/01/16 Cumulative From/Thru 15:00 23:00 07:00 10/26/16 15:50 - 11/01/16 06:58 Intake Total 945 ml 270 ml 6163 ml Output Total 200 ml 600 ml 6975 ml Balance 745 ml -330 ml -812 ml Intake Oral 600 ml 270 ml 5818 ml IV Total 345 ml 345 ml Output Urine Total 200 ml 600 ml 6975 ml # Voids 1 # Bowel Movements 0 1 Exam General: alert, no acute distress, not overly cooperative HEENT: scleral anicteric, mucous membranes moist/pink, very hard of hearing Chest & Lungs: clear to auscultation, no adventitious breath sounds Cardiovascular: no murmurs/rubs/gallops, regular rate/rhythm Pulses: Dorsalis Pedi (present and equal) Abdomen: normoactive bowel tones Musculoskeletal: No left arm Lab and Diagnostics Result Diagram: 10/30/16 0610/30/16 06 X-Rays, CTs and MRIs X-RAY CHEST ONE VIEW, PORTABLE IMPRESSION: Stable cardiomegaly and no acute cardiopulmonary disease. Dictated by: Sandeep BENTLEY Interpreted: Jackie Whitman MD on 10/28/2016 at 14: 01 Transcribed by: DIANE on 10/28/2016 at 14:02 Approved by: Jackie Whitman M.D. on 10/28/2016 at 16:10 X-RAY CHEST, TWO VIEWS IMPRESSION: Cardiomegaly and left basilar infiltrate or atelectasis. Dictated by: Lakesha Sanz M.D. on 10/26/2016 at 17:40 Approved by: Lakesha Sanz M.D. on 10/26/2016 at 17:42 . 12-lead ECG EKG Read by night resident: Heart rate 55, ventricularly paced rhythm, prolonged MA interval at 215 milliseconds, QTC prolonged at 509, widened QRS complex diffusely, Q waves leads 3 aVF and V1, Yimi segment segment elevation in leads V1 through V3, no prior EKG to compare. . Cardiac Echo Impressions Echocardiogram Interpretation Summary: Left ventricular wall thickness is mild-moderately increased. Left ventricular systolic function is moderately reduced. Left ventricular ejection fraction is estimated to be 35%. Compared to the prior exam, left ventricular function is slightly decreased. Apical wall motion abnormality may reflect pacemaker activation. The right ventricle is normal size. There is a pacemaker lead in the right ventricle. Right ventricular systolic function is borderline reduced. The right ventricular systolic pressure is estimated at 28 mmHg assuming a right atrial pressure of 3 mm Hg. The left atrium is mildly dilated. Right atrial size is normal. There is no significant valvular heart disease. The aortic root is normal size. Reading Physician:PM Assessment & Plan Amadou Hook is a 75-year-old male with past medical history of diabetes mellitus type II, non-insulin and coronary artery disease who presented to [facility] Emergency Department with 12 days of worsening wheezing, nonproductive cough, and nasal congestion and was treated for acute systolic congestive heart failure exacerbation. Patient's appeal to stay in the hospital was denied. For more information, please see Discharge Instructions and Discharge Summary by Dr. Briscoe on . Instructions and orders remain in place and pertain to the discharge today. . VTE Prophylaxis: Sub-Q Heparin (Unfractionated) VTE Mechanical Devices: Intermittant Pneumatic CD Resuscitation Status: CPR: Attempt Resuscitation Attending Statement The patient was seen and examined together with Dr. Wang on 11-01-16 and I agree with the history, exam and plan as outlined in the note above. Pilar Wang DO Nov 01, 2016 20:53 Adela Padilla MD Nov 02, 2016 18:53
== END 2016-11-01 17:50 | disposition home health service (06) | DRG 293 ==
LOC: SED 15:45 → MPC 20:26
PROVIDERS: ADMIT Specialist; ATTEND Specialist
DX: I50.21 Acute systolic (congestive) heart failure (principal); I25.10 Atherosclerotic heart disease of native coronary artery without angina pectoris; D69.6 Thrombocytopenia, unspecified; N18.2 Chronic kidney disease, stage 2 (mild); I12.9 Hypertensive chronic kidney disease with stage 1 through stage 4 chronic kidney disease, or unspecified chronic kidney disease; E11.65 Type 2 diabetes mellitus with hyperglycemia; Z89.202 Acquired absence of left upper limb, unspecified level; V29.9XXS Motorcycle rider (driver) (passenger) injured in unspecified traffic accident, sequela; Z89.232 Acquired absence of left shoulder; Z89.231 Acquired absence of right shoulder; Z95.0 Presence of cardiac pacemaker; Z79.84 Long term (current) use of oral hypoglycemic drugs